=== PATIENT | female | born 1970 | race Caucasian/White ===

== ENCOUNTER 2021-08-20 09:44 | Day surgery (SDC) | payer BC, SELFPAY ==
[2021-08-20] VITALS (11 sets, daily range): BP systolic 116–161; BP diastolic 54–82; PULSE 59–86; RESP 16–20; TEMP 36.7–37.1; O2SAT 88–100
--- NOTE | ~2021-08-20 | CT_ITS ---
EXAMINATION: CT abdomen pelvis w con DATE: 08/20/2021 11:19 INDICATION: Right lower quadrant abdominal pain. Nausea. TECHNIQUE: Computed tomography (CT) of the abdomen and pelvis was performed with 100 mL Omnipaque 350 intravenous contrast. Automated exposure control and iterative reconstruction technique were employe d. The dose-length product was 1050.65 mGy-cm. COMPARISON: None. FINDINGS: The visualized portions of the lung bases demonstrate mild atelectasis. No pleural effusion . The heart size is normal. No pericardial effusion. The liver is normal. There are changes of cholec ystectomy. The spleen, pancreas, adrenal glands, and kidneys are normal. The appendix is fluid-filled and dilated to 11 mm. There is fat stranding around the appendix. There is a small sliding hiatal he rnia. There are no pathologically enlarged lymph nodes. There is no free intraperitoneal fluid. There is severe lower lumbar spondylosis. IMPRESSION: 1. Acute appendicitis. I called this result to Dr. Ervin. Reviewed, dictated and finalized at location A. [employer]ES SUPERVISOR
--- NOTE | 2021-08-20 09:58 | ED.ABDPAIN ---
HPI - Abdominal Pain General Chief Complaint: Abdominal Pain Stated Complaint: abd pain Time Seen by Provider: 08/20/21 09:50 Source: patient and RN notes reviewed Mode of arrival: ambulatory Limitations: no limitations History of Present Illness HPI narrative: This is a 50 year old female who presents for evaluation of abdominal pain starting on . Her pain was initially located in her upper abdomen and she is reporting intermittent migration of her pain to right lower abdomen. Her pain is worse with coughing and moving. She has decreased appetite. She denies nausea, vomiting, fever, chills or urinary symptoms. She has been taking tylenol for pain and her last dose was last night. She rates her pain as 7/10 currently. Denies having similar pain in the past. Related Data Allergies Allergy/AdvReac Type Severity Reaction Status Date / Time poison cheyenne extract Allergy Severe Swelling Verified 08/20/21 09:50 of Lip/Tongue/Throat Review of Systems Review of Systems: All systems reviewed & are unremarkable except as noted in HPI and below Constitutional: Constitutional: Denies chills and Denies fever(s) Gastrointestinal: Gastrointestinal: Reports abdominal pain, Denies diarrhea, Denies nausea and Denies vomiting Genitourinary: Genitourinary: Denies hematuria and Denies flank pain Musculoskeletal: Musculoskeletal: Denies back pain PMF Past Medical History Medical History COPD (chronic obstructive pulmonary disease) Encounter for general adult medical examination with abnormal findings (~11/2018) Post menopausal syndrome Primary spontaneous pneumothorax (~12/2018) Tobacco abuse Surgical History Surgical History H/O ovarian cystectomy right History of cholecystectomy (~1999) History of tonsillectomy and adenoidectomy (~2004) Family History Family History Father Hypertension Diabetes mellitus COPD (chronic obstructive pulmonary disease) Mother Asthma Unknown Cardiovascular disease Diverticulitis Lung cancer Social History Social History Smoking packs per day: 1 Smoking cigarettes per day: 20.0 Years smoked: 30 Smoking pack-years: 30.00 Smoking status: Former smoker Tobacco type: cigarettes Smoking end date: 01/22/19 Alcohol intake: current Drinks per week: 2 Substance use: never Additional living arrangements comments: . living w/ fiance since 2008 Gender identity (if verbalized by the patient): Female Agree to blood products: Yes Exam Const: General: no acute distress and alert Orientation/consciousness: patient oriented x3 Eyes: EOM: EOMs intact bilaterally Resp: Effort & Inspection: normal respiratory effort and no retractions Auscultation: clear to auscultation bilaterally Cardio: Rate: regular rate Rhythm: regular rhythm Heart sounds: no murmurs GI: GI Palp: Yes Soft to palpation, Yes Tenderness to palpation present (GI) (diffuse), Yes Guarding due to palpation present (GI) (RLQ), No Rigid due to palpation and No Hernia present Auscultation: normal bowel sounds Skin: General skin exam: normal color Neuro: General: patient oriented x3, moves all extremities and CN's II-XI intact bilaterally Psych: Mental Status: mental status grossly normal Affect: normal affect Course Reevaluation(s) Reevaluation #1: Dr. Diaz will take patient to OR around 4 pm for appendectomy. I have discussed with patient. Date: 08/20/21 Time: 12:07 Vital Signs Vital signs: Vital Signs Temperature 98.8 F 08/20/21 09:46 Pulse Rate 86 08/20/21 09:46 Respiratory Rate 20 08/20/21 09:46 Blood Pressure 161/82 H 08/20/21 09:46 Pulse Oximetry 100 08/20/21 09:46 Temperature 98.0 F 08/20/21 17:07 Pulse Rate 6
[2021-08-20 10:10] LABS: Basophils Absolute Auto 0.1 K/mm3 (0.0-0.1); Basophils Percent Auto 0.5 % (0.2-1.2); Eosinophils Percent Auto 0.2 % (0-4.4); Hematocrit 44.4 % (37.0-47.0); Hemoglobin 14.4 g/dL (12.0-15.0); Immature Granulocyte Absolute 0.04 K/mm3 (0.00-0.031); Immature Granulocyte Percent A 0.3 % (0-0.5); Lymphocytes Absolute Auto 2.02 K/mm3 (0.9-3.2); Lymphocytes Percent Auto 14.5 % (18.3-44.2); Mean Corpuscular HGB Conc 32.4 g/dl (32-36); Mean Corpuscular Hemoglobin 32.6 pg (26-34); Mean Corpuscular Volume 100.5 fl (80-100); Mean Platelet Volume 11.4 fl (7.4-10.4); Monocytes Absolute Auto 0.6 K/mm3 (0.1-0.6); Monocytes Percent Auto 4.4 % (2.6-8.5); Neutrophils Absolute Auto 11.1 K/mm3 (1.3-6.7); Neutrophils Percent Auto 80.1 % (45.5-73.1); Platelet Count Result 172 k/mm3 (150-375); Red Blood Count 4.42 M/mm3 (4.2-5.4); Red Cell Distribution Width 13.8 % (11.5-14.5); White Blood Count 13.9 K/mm3 (4.5-10.0)
[2021-08-20] MEDS: ONDANSETRON INJ 4 MG/2 ML VIAL IV PUSH (10:10)
[2021-08-20] MEDS: MORPHINE SULFATE (*CRX) 4 MG/ML INJ IV PUSH (10:10)
[2021-08-20] MEDS: SODIUM CHLORIDE 0.9% IV 1,000 ML 999 ML IV CONT (10:10)
[2021-08-20 10:42] LABS: Alanine Aminotransferase 18 U/L (4-35); Albumin Level 4.1 g/dL (3.5-5.1); Alkaline Phosphatase 85 U/L (38-126); Anion Gap 4 mmol/L (8-16); Aspartate Amino Transferase 23 U/L (14-36); Blood Urea Nitrogen 11 mg/dL (7-17); Carbon Dioxide 28 mmol/L (22-30); Chloride 102 mmol/L (98-107); Estimated CRCL calculation 109 ml/min; Estimated Glomerular Filt Rate > 60; Glucose 96 mg/dL (65-110); Lipase 20 U/L (23-300); Potassium 4.3 mmol/L (3.4-5.0); Sodium 134 mmol/L (137-145)
[2021-08-20 11:43] LABS: Add Urine Microscopic? YES; Appearance Urine Cloudy (Clear); Bacteria Urine Trace /hpf; Bilirubin Urine Negative (Negative); Blood Urine 3+ (Negative); Color Urine Yellow (Yellow); Glucose Urine UA Negative (Negative); Ketones Urine 2+ mg/dL (Negative); Leukocyte Esterase Ur Negative LEU/UL (Negative); Mucus Urine Few /lpf; Nitrate Urine Positive (Negative); Protein Urine Negative (Negative); RBC Urine 21-50 /hpf (0-2); Squamous Epithelial Cell Urine Moderate /hpf (Few); Urobilinogen Urine Negative mg/dL (<2.0)
[2021-08-20 11:44] LABS: Specific Grav Ur 1.056 (1.001-1.035)
--- NOTE | 2021-08-20 14:58 | WPDANESEPP ---
Anes - Eval Pre Procedure Procedure: Laparoscopic Appendectomy Date/Time: 08/20/21 14:58 Surgeon: Dr. Diaz Preop Diagnosis: Acute Appendicitis Pre Op Diagnosis: abd pain Patient Data Age: 50 Gender: F Height: 1.7 m Weight: 90 kg Last Vital Signs Temp 98.8 F 08/20/21 09:46 Pulse 66 08/20/21 12:29 Resp 16 08/20/21 12:29 BP 143/78 H 08/20/21 12:29 Pulse Ox 100 08/20/21 12:29 Allergies Allergy/AdvReac Type Severity Reaction Status Date / Time poison cheyenne extract Allergy Severe Swelling Verified 08/20/21 09:50 of Lip/Tongue/Throat Home Medications Medication Instructions Recorded Confirmed Type No Home Medications 08/20/21 08/20/21 History Laboratory Tests 08/20/21 08/20/21 08/20/21 10:03 10:03 10:21 WBC 13.9 K/mm3 H K/mm3 (4.5-10.0) RBC 4.42 M/mm3 M/mm3 (4.2-5.4) Hgb 14.4 g/dL g/dL (12.0-15.0) Hct 44.4 % % (37.0-47.0) MCV 100.5 fl H fl (80-100) MCH 32.6 pg pg (26-34) MCHC 32.4 g/dl g/dl (32-36) RDW 13.8 % % (11.5-14.5) Plt Count 172 k/mm3 k/mm3 (150-375) MPV 11.4 fl H fl (7.4-10.4) Immature Gran % (Auto) 0.3 % % (0-0.5) Neut % (Auto) 80.1 % H % (45.5-73.1) Lymph % (Auto) 14.5 % L % (18.3-44.2) [place] % (Auto) 4.4 % % (2.6-8.5) Eos % (Auto) 0.2 % % (0-4.4) Baso % (Auto) 0.5 % % (0.2-1.2) Lymph # (Auto) 2.02 K/mm3 K/mm3 (0.9-3.2) [place] # (Auto) 0.6 K/mm3 K/mm3 (0.1-0.6) Eos # (Auto) 0.0 K/mm3 K/mm3 (0-0.3) Baso # (Auto) 0.1 K/mm3 K/mm3 (0.0-0.1) Abs Immat Gran (auto) 0.04 K/mm3 H K/mm3 (0.00-0.031) Absolute Neuts (auto) 11.1 K/mm3 H K/mm3 (1.3-6.7) Absolute Nucleated RBC 0.0 K/mm3 K/mm3 (0.0-0.012) Nucleated RBC % 0.0 % % (0.0-0.2) Sodium 134 mmol/L L mmol/L (137-145) Potassium 4.3 mmol/L mmol/L (3.4-5.0) Chloride 102 mmol/L mmol/L (98-107) Carbon Dioxide 28 mmol/L mmol/L (22-30) Anion Gap 4 mmol/L L mmol/L (8-16) BUN 11 mg/dL mg/dL (7-17) Creatinine 0.60 mg/dL L mg/dL (0.7-1.0) Estim Creat Clear Calc 109 ml/min ml/min Estimated GFR > 60 (59 - ) Glucose 96 mg/dL mg/dL (65-110) Calcium 9.0 mg/dL mg/dL (8.4-10.2) Total Bilirubin 1.0 mg/dL mg/dL (0.2-1.3) AST 23 U/L U/L (14-36) ALT 18 U/L U/L (4-35) Alkaline Phosphatase 85 U/L U/L (38-126) Total Protein 7.0 g/dL g/dL (6.3-8.2) Albumin 4.1 g/dL g/dL (3.5-5.1) Lipase 20 U/L L U/L (23-300) Urine Color Yellow (Yellow) Urine Appearance Cloudy H (Clear) Urine pH 5.0 (5.0-9.0) Ur Specific [place] 1.056 H (1.001-1.035) Urine Protein Negative mg/dL mg/dL (Negative) Urine Glucose (UA) Negative mg/dL mg/dL (Negative) Urine Ketones 2+ mg/dL H mg/dL (Negative) Ur Blood (Man) 3+ H (Negative) Urine Nitrate Positive H (Negative) Urine Bilirubin Negative (Negative) Urine Urobilinogen Negative mg/dL mg/dL (<2.0) Leukocyte Esterase Rfl Negative JOSE/UL JOSE/UL (Negative) Urine RBC 21-50 /hpf H /hpf (0-2) Urine WBC 7-9 /hpf H /hpf Ur Squamous Epith Cells Moderate /hpf H /hpf (Few) Urine Bacteria Trace /hpf /hpf Urine Mucus Few /lpf H /lpf Patient hx anesthesia problems: none Family hx anesthesia problems: none Prior surgeries: cholecystectomy T&A Results Review: All pre-operative results and documents have been reviewed as part of the pre-operative evaluation. [facility] Past Medical History Medical History (Updated 08/20/21 @ 15:05 by Jose Patrick
--- NOTE | 2021-08-20 15:11 | PC.NURSE ---
report given to Julia in the OR. Requesting patient be brought to PACU at 1530.
--- NOTE | 2021-08-20 15:53 | WPDANESEPPF ---
Anes - Initial Pre Proc Eval Procedure: Operation Date: 08/20/21 16:00 Proposed Procedures p Laparoscopic Appendectomy - Lala Diaz MD Date/Time: 08/20/21 15:53 Surgeon: Lala Diaz MD Pre Op Diagnosis: abd pain Patient Data Age: 50 Gender: F Height: 1.7 m Weight: 90 kg Last Vital Signs Temp 37.1 C 08/20/21 09:46 Pulse 70 08/20/21 15:33 Resp 16 08/20/21 15:33 BP 126/70 08/20/21 15:33 Pulse Ox 95 08/20/21 15:33 Allergies Allergy/AdvReac Type Severity Reaction Status Date / Time poison cheyenne extract Allergy Severe Swelling Verified 08/20/21 09:50 of Lip/Tongue/Throat Home Medications Medication Instructions Recorded Confirmed Type No Home Medications 08/20/21 08/20/21 History Laboratory Tests 08/20/21 08/20/21 08/20/21 10:03 10:03 10:21 WBC 13.9 K/mm3 H K/mm3 (4.5-10.0) RBC 4.42 M/mm3 M/mm3 (4.2-5.4) Hgb 14.4 g/dL g/dL (12.0-15.0) Hct 44.4 % % (37.0-47.0) MCV 100.5 fl H fl (80-100) MCH 32.6 pg pg (26-34) MCHC 32.4 g/dl g/dl (32-36) RDW 13.8 % % (11.5-14.5) Plt Count 172 k/mm3 k/mm3 (150-375) MPV 11.4 fl H fl (7.4-10.4) Immature Gran % (Auto) 0.3 % % (0-0.5) Neut % (Auto) 80.1 % H % (45.5-73.1) Lymph % (Auto) 14.5 % L % (18.3-44.2) [place] % (Auto) 4.4 % % (2.6-8.5) Eos % (Auto) 0.2 % % (0-4.4) Baso % (Auto) 0.5 % % (0.2-1.2) Lymph # (Auto) 2.02 K/mm3 K/mm3 (0.9-3.2) [place] # (Auto) 0.6 K/mm3 K/mm3 (0.1-0.6) Eos # (Auto) 0.0 K/mm3 K/mm3 (0-0.3) Baso # (Auto) 0.1 K/mm3 K/mm3 (0.0-0.1) Abs Immat Gran (auto) 0.04 K/mm3 H K/mm3 (0.00-0.031) Absolute Neuts (auto) 11.1 K/mm3 H K/mm3 (1.3-6.7) Absolute Nucleated RBC 0.0 K/mm3 K/mm3 (0.0-0.012) Nucleated RBC % 0.0 % % (0.0-0.2) Sodium 134 mmol/L L mmol/L (137-145) Potassium 4.3 mmol/L mmol/L (3.4-5.0) Chloride 102 mmol/L mmol/L (98-107) Carbon Dioxide 28 mmol/L mmol/L (22-30) Anion Gap 4 mmol/L L mmol/L (8-16) BUN 11 mg/dL mg/dL (7-17) Creatinine 0.60 mg/dL L mg/dL (0.7-1.0) Estim Creat Clear Calc 109 ml/min ml/min Estimated GFR > 60 (59 - ) Glucose 96 mg/dL mg/dL (65-110) Calcium 9.0 mg/dL mg/dL (8.4-10.2) Total Bilirubin 1.0 mg/dL mg/dL (0.2-1.3) AST 23 U/L U/L (14-36) ALT 18 U/L U/L (4-35) Alkaline Phosphatase 85 U/L U/L (38-126) Total Protein 7.0 g/dL g/dL (6.3-8.2) Albumin 4.1 g/dL g/dL (3.5-5.1) Lipase 20 U/L L U/L (23-300) Urine Color Yellow (Yellow) Urine Appearance Cloudy H (Clear) Urine pH 5.0 (5.0-9.0) Ur Specific [place] 1.056 H (1.001-1.035) Urine Protein Negative mg/dL mg/dL (Negative) Urine Glucose (UA) Negative mg/dL mg/dL (Negative) Urine Ketones 2+ mg/dL H mg/dL (Negative) Ur Blood (Man) 3+ H (Negative) Urine Nitrate Positive H (Negative) Urine Bilirubin Negative (Negative) Urine Urobilinogen Negative mg/dL mg/dL (<2.0) Leukocyte Esterase Rfl Negative JOSE/UL JOSE/UL (Negative) Urine RBC 21-50 /hpf H /hpf (0-2) Urine WBC 7-9 /hpf H /hpf Ur Squamous Epith Cells Moderate /hpf H /hpf (Few) Urine Bacteria Trace /hpf /hpf Urine Mucus Few /lpf H /lpf Patient hx anesthesia problems: none Family hx anesthesia problems: none Results Review: All pre-operative results and documents have been reviewed as part of the pre-operative evaluation. [facility] Past Medical History Medical History (Reviewed 08/20/21 @ 15:53
[2021-08-20] MEDS: LACTATED RINGERS 1,000 ML 30 ML IV CONT ×2 (16:00→17:29)
--- NOTE | 2021-08-20 16:09 | PM.IMHP ---
H&P: HPI History of Present Illness Date/Time: 08/20/21 16:09 Pt is a 50 y/o F presenting c severe RLQ abd pain. Pt reports pain started and has progressively worsened. Pt reports associated anorexia, nausea. Chief Complaint: ACUTE APPY Review of Systems Constitutional: Constitutional: Reports as per HPI, Reports anorexia, Reports fatigue, Reports poor appetite and Reports weakness Eyes: Eyes: Reports no additional eye complaints ENT: Reports system reviewed and no additional complaints, except as documented Cardiovascular: Cardiovascular: Reports no additional cardiovascular complaints Respiratory: Respiratory: Reports no additional respiratory complaints Gastrointestinal: Gastrointestinal: Reports abdominal pain, Reports bloating, Reports nausea and Reports vomiting Genitourinary: Genitourinary: Reports no additional female genitourinary complaints Musculoskeletal: Musculoskeletal: Reports no additional musculoskeletal complaints Integumentary/Breasts: Skin/Breast: Reports system reviewed and no additional complaints, except as docu Neurologic: Reports system reviewed and no additional complaints, except as documented Psychiatric: Psychiatric: Reports no additional psychiatric complaints Endocrine: Endocrine: Reports no additional endocrine complaints Hematologic/Lymphatic: Hematologic/Lymphatic: Reports no additional hematologic/lymphatic complaints Allergic/Immunologic: Allergic/Immunologic: Reports no additional allergic/immunologic complaints PMF Past Medical History Medical History COPD (chronic obstructive pulmonary disease) Encounter for general adult medical examination with abnormal findings (~11/2018) Post menopausal syndrome Primary spontaneous pneumothorax (~12/2018) Tobacco abuse Surgical History Surgical History H/O ovarian cystectomy right History of cholecystectomy (~1999) History of tonsillectomy and adenoidectomy (~2004) Family History Family History Father Hypertension Diabetes mellitus COPD (chronic obstructive pulmonary disease) Mother Asthma Unknown Cardiovascular disease Diverticulitis Lung cancer Social History Social History Smoking packs per day: 1 Smoking cigarettes per day: 20.0 Years smoked: 30 Smoking pack-years: 30.00 Smoking status: Former smoker Tobacco type: cigarettes Smoking end date: 01/22/19 Alcohol intake: current Drinks per week: 2 Substance use: never Additional living arrangements comments: . living w/ fiance since 2008 Gender identity (if verbalized by the patient): Female Agree to blood products: Yes Meds Home Medications and Allergies Home Medications Medication Instructions Recorded Confirmed Type No Home Medications 08/20/21 08/20/21 History Allergies Allergy/AdvReac Type Severity Reaction Status Date / Time poison cheyenne extract Allergy Severe Swelling Verified 08/20/21 09:50 of Lip/Tongue/Throat Vital Signs Vital Signs - 24 hr 08/20/21 09:46 08/20/21 12:29 08/20/21 15:33 Temperature 37.1 C Pulse Rate 86 66 70 Respiratory Rate 20 16 16 Blood Pressure 161/82 H 143/78 H 126/70 Pulse Oximetry 100 100 95 Exam Const: General: cooperative, comfortable and no acute distress Nutritional Appearance: obese Orientation/consciousness: patient oriented x3 Limitations: no limitations HENMT: Head: normal to inspection, normocephalic and atraumatic Ears: hearing grossly normal bilaterally General nose exam: Normal external nose present Face and sinus: normal facial exam Mouth: Yes Normal oral and palatal mucosa present Eyes: General: appearance normal, both eyes and all related structures Pupils: Equal, round and reactive pupils present EOM: EOM
--- NOTE | 2021-08-20 16:22 | WPDHPUPDATE1 ---
History and Physical Update Update Date/Time: 08/20/21 16:22 History and Physical has been reviewed, including an updated exam of the patient. There are NO changes in the patient's condition. Risks, benefits, and alternatives have been discussed and questions answered. Patient agrees to proceed with procedure.
[2021-08-20] MEDS: BUPIVACAINE/EPINEPHRINE 0.25% 50 ML VIAL 30 ML INFILTRATE (16:27)
--- NOTE | 2021-08-20 16:56 | P.OP_ITS ---
Procedure Note - Detailed Date of Procedure 08/20/21 Pre-op Diagnosis acute appendicitis Post-op Diagnosis Same Procedure Performed laparoscopic appendectomy Surgeon Lala Diaz MD Anesthesia General Indications 50 y/o F presenting c acute appendicitis over last 72 hours Findings acute uncomplicated appendicitis Description of Procedure The patient was taken to the operating room and placed in the supine position. After adequate induction of general anesthesia, the patient was prepped and draped in the normal sterile fashion. A time-out was then done to verify the patient's identity, as well as the procedure being performed. I began by making a 5 mm incision in the infraumbilical region, through this a Veress needle was placed in the peritoneal cavity. CO2 gas was then insufflated and after adeq uate pneumoperitoneum was achieved the Veress needle was removed. Then placed a 5 mm Optiview trocar under direct visualization into the peritoneal cavity. I then insufflated through this trocar site and the endoscope was placed into the trocar. Under direct visualization, placed 2 further 5 mm suprapubic port as well as an additional 12 mm port in the left lower abdomen. At this point identified the cecum, I retracted the cecum both medially and superiorly allowing me to expose the appendix. The appendix was noted to be very dilated and inflamed. The appendix was noted to be very adherent to the right lateral sidewall as well as the ileum. I was able to bluntly dissect the appendix from these adhesions. I then was able to locate the base of the appendix with the cecum. I created a window with the [place] dissector between the appendix itself and the mesoappendix. I then transected the mesoappendix with a white vascular staple load. The Endo-JALEN was then reloaded with a blue staple load and I transected the base of the appendix. Once the specimen was completely detached, an endo-pouch was placed into the 12 mm port site and the specimen was removed through the endo-pouch. The appendiceal specimen will be sent to pathology for further review. I then copiously irrigated the right lower quadrant. Hemostasis was noted at both staple lines no other pathology was seen in this area. I then moved the camera to the suprapubic port to check our its port of entry. No iatrogenic injury or other pathology was noted in the upper abdomen. I then closed the 12 mm port site with a Huy code and 0 Vicryl suture under direct visualization. At this point, the abdomen was desufflated and all ports were removed. All port sites were closed with 4 Monocryl subcuticular suture. Dermabond was placed on all wounds. The patient tolerated the procedure well and was extubated in the operating room postop. He will be sent to the recovery room in stable condition. Estimated Blood Loss 5 Drains No Packing No Pathology Yes Complications No immediate complications Condition Stable Disposition PACU
--- NOTE | 2021-08-20 17:37 | SUR.PHASEI ---
Simple mask removed at [id number].
--- NOTE | 2021-08-20 18:12 | SUR.PHASEII ---
Patient's O2 sats were 83% on room air when RN got her settled in outpatient. RN applied 2L NC. Patient recovered quickly.
[2021-08-20] MEDS: oxyCODONE HCL (*CRX) 5 MG TAB IR PO (18:28)
--- NOTE | 2021-08-20 19:11 | SUR.PHASEII ---
1900: Vitals stable. Patient is dressed and waiting for ride.
== END 2021-08-20 19:08 | disposition home or self-care (01) ==
LOC: ANHED 09:59 → ANHSURGERY 12:16
PROVIDERS: Emergency Provider General Practice; PCP Family Medicine; Visit Provider Surgery
PROC: 0DTJ4ZZ Resection of Appendix, Percutaneous Endoscopic Approach (ICD-10-PCS; CPT 44970; principal; 2021-08-20 16:00)
DX: K35.21 Acute appendicitis with generalized peritonitis, with abscess (principal); N80.5 Endometriosis of intestine; J44.9 Chronic obstructive pulmonary disease, unspecified; R10.31 Right lower quadrant pain; Z90.49 Acquired absence of other specified parts of digestive tract; Z87.891 Personal history of nicotine dependence; E66.9 Obesity, unspecified; Z68.31 Body mass index [BMI] 31.0-31.9, adult
CPT/HCPCS: 44970; 36415; 74177; 80053; 81001; 83690; 85025; 87077; 87086; 87186; 88304; 96361; 96365; 96375; 99285; A9270; J0330; J1100; J2250; J2270; J2405; J2543; J2704; J2710; J3010; J7030; J7120; Q9967

== ENCOUNTER 2022-10-06 02:41 | Day surgery (SDC) | payer BC, SELFPAY ==
[2022-09-29 11:23] VITALS: BMI 35.9
--- NOTE | 2022-10-05 17:26 | PM.HPGS ---
History of Present Illness History of Present Illness Consent: Risks, benefits, and alternatives have been discussed and questions answered. Patient agrees to proceed with procedure. Chief complaint: neoplasm screening Narrative: Viv Harrington is a 51 year old female Referred for colon cancer screening. Review of Systems Review of Systems: All systems reviewed & are unremarkable except as noted in HPI and below PMFSH Past Medical History Medical History COPD (chronic obstructive pulmonary disease) Encounter for general adult medical examination with abnormal findings (~11/2018) Hyperlipidemia Post menopausal syndrome Primary spontaneous pneumothorax (~12/2018) Tobacco abuse Vitamin D deficiency Surgical History Surgical History H/O ovarian cystectomy right History of cholecystectomy (~1999) History of tonsillectomy and adenoidectomy (~2004) Hx of appendectomy (~08/2021) Family History Family History Father Hypertension Diabetes mellitus COPD (chronic obstructive pulmonary disease) Mother Asthma Unknown Cardiovascular disease Diverticulitis Lung cancer Social History Social History Smoking packs per day: 1 Smoking cigarettes per day: 20.0 Years smoked: 30 Smoking pack-years: 30.00 Smoking status: Former smoker Tobacco type: cigarettes Smoking end date: 01/22/19 Alcohol intake: current Drinks per week: 2 Substance use: never Substance use type: does not use Lack of Transportation: No Lack of Food: Never True Current Housing: I Have Housing Concerned About Future Housing: No Difficulty Paying Gas/Electric Bills: No Difficulty Paying for Meds: No Currently Unemployed: No Education: Decline to Answer Difficulty w/ Childcare or Family Care: No Living arrangements: with family Additional living arrangements comments: . living w/ fiance since 2008 Occupation/Education: occupation Gender identity (if verbalized by the patient): Female Spiritual care concerns: No Agree to blood products: Yes Meds Home Medications and Allergies Home Medications Medication Instructions Recorded Confirmed Type atorvastatin 10 mg tablet 10 mg PO QHS #90 tabs 08/29/22 10/06/22 Rx cholecalciferol (vitamin D3) 50 100 mcg PO DAILY #1 cap 08/29/22 10/06/22 Rx mcg (2,000 unit) capsule Allergies Allergy/AdvReac Type Severity Reaction Status Date / Time poison cheyenne extract Allergy Severe Swelling Verified 10/06/22 09:59 of Lip/Tongue/Throat Exam Const: General: alert Orientation/consciousness: patient oriented x3 Resp: Auscultation: clear to auscultation bilaterally Cardio: Rate: regular rate Rhythm: regular rhythm GI: GI Palp: Yes Soft to palpation and No Tenderness to palpation present (GI) Neuro: General: patient oriented x3 Assessment and Plan Assessment and plan (1) Colon cancer screening: Code(s): Z12.11 - Encounter for screening for malignant neoplasm of colon Status: Acute Assessment and Plan: Colonoscopy with possible biopsy or polypectomy or cautery or injection of substances.
[2022-10-06 10:00] VITALS: BP 105/65; PULSE 69; RESP 18; TEMP 36.6; O2SAT 97; BMI 35.0
[2022-10-06] MEDS: LACTATED RINGERS 1,000 ML 150 ML IV CONT (10:09)
--- NOTE | 2022-10-06 10:39 | WPDANESEPPF ---
Anes - Initial Pre Proc Eval Procedure: Operation Date: 10/06/22 11:00 Proposed Procedures p Screening Colonoscopy - Vasile Acevedo MD Date/Time: 10/06/22 10:39 Surgeon: Vasile Acevedo MD Pre Op Diagnosis: neoplasm screening Patient Data Age: 51 Gender: F Height: 1.65 m Weight: 95.5 kg Last Vital Signs Temp 97.8 F 10/06/22 10:00 Pulse 69 10/06/22 10:00 Resp 18 10/06/22 10:00 BP 105/65 10/06/22 10:00 Pulse Ox 97 10/06/22 10:00 O2 Del Method Room Air 10/06/22 10:00 Allergies Allergy/AdvReac Type Severity Reaction Status Date / Time poison cheyenne extract Allergy Severe Swelling Verified 10/06/22 09:59 of Lip/Tongue/Throat Home Medications Medication Instructions Recorded Confirmed Type atorvastatin 10 mg tablet 10 mg PO QHS #90 tabs 08/29/22 10/06/22 Rx cholecalciferol (vitamin D3) 50 100 mcg PO DAILY #1 cap 08/29/22 10/06/22 Rx mcg (2,000 unit) capsule Patient hx anesthesia problems: none Family hx anesthesia problems: none Results Review: All pre-operative results and documents have been reviewed as part of the pre-operative evaluation. [facility] Past Medical History Medical History COPD (chronic obstructive pulmonary disease) Encounter for general adult medical examination with abnormal findings (~11/2018) Hyperlipidemia Post menopausal syndrome Primary spontaneous pneumothorax (~12/2018) Tobacco abuse Vitamin D deficiency Surgical History Surgical History H/O ovarian cystectomy right History of cholecystectomy (~1999) History of tonsillectomy and adenoidectomy (~2004) Hx of appendectomy (~08/2021) Family History Family History Father Hypertension Diabetes mellitus COPD (chronic obstructive pulmonary disease) Mother Asthma Unknown Cardiovascular disease Diverticulitis Lung cancer Social History Social History Smoking packs per day: 1 Smoking cigarettes per day: 20.0 Years smoked: 30 Smoking pack-years: 30.00 Smoking status: Former smoker Tobacco type: cigarettes Smoking end date: 01/22/19 Alcohol intake: current Drinks per week: 2 Substance use: never Substance use type: does not use Lack of Transportation: No Lack of Food: Never True Current Housing: I Have Housing Concerned About Future Housing: No Difficulty Paying Gas/Electric Bills: No Difficulty Paying for Meds: No Currently Unemployed: No Education: Decline to Answer Difficulty w/ Childcare or Family Care: No Living arrangements: with family Additional living arrangements comments: . living w/ fiance since 2008 Occupation/Education: occupation Gender identity (if verbalized by the patient): Female Spiritual care concerns: No Agree to blood products: Yes Anes - Eval Final PreProcedure Day of Procedure 10/06/22 10:39 Patient weight: obese Heart: regular rate and rhythm Lungs: wheezes (left lobe) Airway: Mallampati scale class II Neurological: alert and oriented Last oral intake: >/= 8 hours ASA classification: III Emergent: no Anesthetic plan: proceed Anesthesia type and monitoring: general GIVS and standard monitoring Results Review: All pre-operative results and documents have been reviewed as part of the pre-operative evaluation. Informed Consent: The patient's anesthetic plan and its attendant risks and benefits were discussed with the patient/family/POA. Questions were solicited and answers provided to the satisfaction of the patient/family/POA.
[2022-10-06 11:04] VITALS: BP 95/58; PULSE 66; RESP 17; O2SAT 95
[2022-10-06 11:14] VITALS: BP 94/55; PULSE 65; RESP 18; O2SAT 94
[2022-10-06 11:24] VITALS: BP 105/67; PULSE 63; RESP 24; O2SAT 95
== END 2022-10-06 11:30 | disposition home or self-care (01) ==
PROVIDERS: PCP Family Medicine; Visit Provider Internal Medicine Gastroenterology
PROC: 0DJD8ZZ Inspection of Lower Intestinal Tract, Via Natural or Artificial Opening Endoscopic (ICD-10-PCS; CPT 45378; principal; 2022-10-06 11:00)
DX: Z12.11 Encounter for screening for malignant neoplasm of colon (principal); K63.5 Polyp of colon; J44.9 Chronic obstructive pulmonary disease, unspecified; E78.5 Hyperlipidemia, unspecified; E55.9 Vitamin D deficiency, unspecified; Z87.891 Personal history of nicotine dependence; E66.9 Obesity, unspecified; Z68.35 Body mass index [BMI] 35.0-35.9, adult
CPT/HCPCS: 45380; 88305; J2704; J7120

== ENCOUNTER 2023-12-04 09:53 | Emergency (ER) | payer BC, SELFPAY ==
--- NOTE | ~2023-12-04 | XR_ITS ---
EXAMINATION: XR chest 2V DATE: 12/04/2023 10:12 INDICATION: Upper respiratory infection with cough. Shortness of breath. TECHNIQUE: Frontal and lateral views of the chest were obtained. COMPARISON: Chest single view 01/17/2019, CT abdomen and pelvis 08/20/2021 FINDINGS: There is no pneumonia, pleural effusion, or pneumothorax. The heart size is normal. Surgica l clips in the right upper quadrant are likely from cholecystectomy. IMPRESSION: 1. No acute cardiopulmonary disease. Reviewed, dictated and finalized at location E.
[2023-12-04 10:00] VITALS: BP 157/78; PULSE 75; RESP 20; TEMP 36.9; O2SAT 95
--- NOTE | 2023-12-04 10:13 | ED.URI ---
HPI - URI/Sore Throat General Chief Complaint: Upper Respiratory Infection Stated Complaint: Cough/Fever Time Seen by Provider: 12/04/23 09:55 Source: patient Mode of arrival: ambulatory Limitations: no limitations History of Present Illness HPI Narrative: Patient is a 53 y/o female that presents with 10 days of sinus congestion and cough. Patient is a occasional smoker and has history of COPD. Patient is any fever, chills, nausea, vomiting, diarrhea. Related Data Allergies Allergy/AdvReac Type Severity Reaction Status Date / Time poison cheyenne extract Allergy Severe Swelling Verified 12/04/23 10:02 of Lip/Tongue/Throat Review of Systems Review of Systems: All systems reviewed & are unremarkable except as noted in HPI and below Constitutional: Constitutional: Denies body ache(s), Denies chills, Denies fatigue, Denies fever(s), Denies headache(s), Denies malaise and Denies weakness Eyes: Eyes: Denies blurry vision, Denies itchy eyes and Denies loss of vision ENT: Denies otalgia, Denies headache(s), Reports nasal congestion, Denies sinus pain and Denies sore throat Cardiovascular: Cardiovascular: Denies chest pain, Denies irregular heart rhythm and Denies dyspnea Respiratory: Respiratory: Reports cough and Denies dyspnea Gastrointestinal: Gastrointestinal: Denies abdominal pain, Denies diarrhea, Denies nausea and Denies vomiting Musculoskeletal: Musculoskeletal: Denies back pain, Denies myalgias and Denies arthralgias Integumentary/Breasts: Skin/Breast: Denies pruritus and Denies rash Neurologic: Denies headache(s), Denies loss of vision and Denies weakness Psychiatric: Psychiatric: Reports no additional psychiatric complaints Endocrine: Endocrine: Denies fatigue Allergic/Immunologic: Allergic/Immunologic: Denies itchy eyes PMFSH Past Medical History Medical History COPD (chronic obstructive pulmonary disease) Encounter for general adult medical examination with abnormal findings (~11/2018) Hyperlipidemia Post menopausal syndrome Primary spontaneous pneumothorax (~12/2018) Tobacco abuse Vitamin D deficiency Surgical History Surgical History H/O ovarian cystectomy right History of cholecystectomy (~1999) History of tonsillectomy and adenoidectomy (~2004) Hx of appendectomy (~08/2021) Family History Family History Father Hypertension Diabetes mellitus COPD (chronic obstructive pulmonary disease) Mother Asthma Unknown Cardiovascular disease Diverticulitis Lung cancer Social History Social History Smoking packs per day: 1 Smoking cigarettes per day: 20.0 Years smoked: 30 Smoking pack-years: 30.00 Smoking status: Former smoker Tobacco type: cigarettes Smoking end date: 01/22/19 Alcohol intake: current Drinks per week: 2 Substance use: never Substance use type: does not use Lack of Transportation: No Lack of Food: Never True Current Housing: I Have Housing Concerned About Future Housing: No Difficulty Paying Gas/Electric Bills: No Difficulty Paying for Meds: No Currently Unemployed: No Education: Decline to Answer Difficulty w/ Childcare or Family Care: No Living arrangements: with family Additional living arrangements comments: . living w/ fiance since 2008 Occupation/Education: occupation Gender identity (if verbalized by the patient): Female Spiritual care concerns: No Agree to blood products: Yes Comments At time of signature, agree with nursing past medical, surgical, social and family history. There is no relevant family history pertinent to the presenting complaint. Exam Const: General: cooperative, healthy appearing, comfortable, no acute distress and well nourished Nutritional Appearance:
== END 2023-12-04 10:58 | disposition home or self-care (01) ==
PROVIDERS: Emergency Provider Nurse Practitioner Family; PCP Family Medicine
DX: J06.9 Acute upper respiratory infection, unspecified (principal); J44.9 Chronic obstructive pulmonary disease, unspecified; E78.5 Hyperlipidemia, unspecified; Z72.0 Tobacco use
CPT/HCPCS: 71046; 99213; G0463

== ENCOUNTER 2025-04-10 08:09 | Outpatient (CLI) | payer BC, SELFPAY ==
--- NOTE | ~2025-04-10 | DEXA_ITS ---
Bone Density Report Name: KELSIE PERALTA Age: 54 Sex: Female Ethnicity: White Date of : 1970 Indication: postmenopausal; screening for osteoporosis; height loss; Referring Provider: Breonna Portillo Study: Bone densitometry was performed. Exam Date: April 10, 2025 Accession number: [id number] Bone Density: Region BMD T-score Z-score Classification AP Spine(L1-L4) 0.984 -0.6 0.5 Normal Femoral Neck (Left) 0.854 0.0 1.1 Normal Total Hip (Left) 0.910 -0.3 0.4 Normal Femoral Neck (Right) 0.878 0.3 1.3 Normal Total Hip (Right) 0.929 -0.1 0.6 Normal Total Hip Mean 0.920 -0.2 0.5 Normal World Health Organization criteria for BMD impression classify patients as: Normal (T-score at or above -1.0), Osteopenia (T-score between -1.0 and -2.5), or Osteoporosis (T-score at or below -2.5). 10-year Fracture Risk: FRAX not reported because: All T-scores for Spine Total, Hip Total, Femoral Neck at or above -1.0 Clinical Information Provided by Patient: Has used the following medications: Vitamin D Patient maximum height was 66 Menopause Age: 38 No regular weight bearing exercise Does not regularly consume dairy products Drinks caffeinated beverages Onset of menses at age 12 Number of children 2 Missed period for more than 6 months in a row Impression: The patient has normal bone mass. Discussion: BONE DENSITY IS ABOVE THE MINIMUM DESIRABLE LEVEL AT ALL SKELETAL SITES TESTED. This patient?s bone mineral density is above the minimum desirable level (T-score -1.0 or better) at all sites measured. The patient should follow a healthful lifestyle (good nutrition with adequate calcium and vitamin D, and appropriate weight-bearing exercise). Follow-Up: Consider repeating this study in 5 years or sooner if there is some new clinical indication. Reported by: DEENA on 04/10/2025 8:35:00 AM. Reviewed, dictated and finalized at location A.
== END 2025-04-10 08:10 | disposition home or self-care (01) ==
LOC: MICIMG 08:09
PROVIDERS: PCP Nurse Practitioner Family; Visit Provider Nurse Practitioner Family
DX: Z78.0 Asymptomatic menopausal state (principal)
CPT/HCPCS: 77080

== ENCOUNTER 2025-04-16 10:33 | Outpatient (CLI) | payer BC, SELFPAY ==
--- NOTE | ~2025-04-16 | MM_ITS ---
EXAMINATION: MM screening alli BI w juan HISTORY: Screening TECHNIQUE: Craniocaudal and mediolateral oblique 3-D tomosynthesis images were obtained and synthetic 2-D images were generated. CAD analysis was submitted and interpreted. COMPARISON: No prior mammogram is available for comparison at this institution. BREAST PARENCHYMAL COMPOSITION: Not Dense. The breasts are almost entirely fatty. FINDINGS: There is no evidence of suspicious mass, calcification, or architectural distortion to suggest malignancy in either breast. There has been no suspicious interval change. IMPRESSION: 1. No mammographic evidence of malignancy. 2. Recommend routine screening mammography in one year. BI-RADS Category 1: Negative Reviewed, dictated and finalized at location B.
== END 2025-04-16 10:34 | disposition home or self-care (01) ==
LOC: ANHFOHIMG 10:34
PROVIDERS: PCP Nurse Practitioner Family; Visit Provider Nurse Practitioner Family
DX: Z12.31 Encounter for screening mammogram for malignant neoplasm of breast (principal)
CPT/HCPCS: 77063; 77067